=== PATIENT | female | born 1980 | race Caucasian/White ===

== ENCOUNTER → 2020-09-03 10:46 | Outpatient (CLI) | payer BC, SELFPAY ==
--- NOTE | 2020-09-03 | DI.RAD.S_ITS ---
PROCEDURE: XR CERVICAL SPINE 2V OR 3V INDICATIONS: BULGING CERVICAL DISK TECHNIQUE: 3 view(s) of the cervical spine were acquired. COMPARISON: None. FINDINGS: Bones: No fractures or dislocations to the T1 level. The lateral masses of C1 appear intact on the odontoid view. No suspicious bony lesions. There is a mild degree of degenerative disc disease at C4-5 and C5-6 and a ujlb-gn-vimebdin degree of such degeneration at C6-7. Soft tissues: No prevertebral soft tissue swelling. IMPRESSION: No subluxation or recent trauma found. Mild degenerative changes overall are present involving the cervical spine, most prominent at C6-7 where mild to moderate degenerative disc height reduction is present. Dictated by: Mario Art M.D. on 09/03/2020 at 14:35 Approved by: Mario Art M.D. on 09/03/2020 at 14:36
== END ==
PROVIDERS: PCP Student in an Organized Health Care Education/Training Program; Referring Provider Student in an Organized Health Care Education/Training Program; Visit Provider Student in an Organized Health Care Education/Training Program
DX: M50.20 Other cervical disc displacement, unspecified cervical region (principal); M50.321 Other cervical disc degeneration at C4-C5 level
CPT/HCPCS: 72040

== ENCOUNTER → 2022-03-03 15:45 | Outpatient (CLI) | payer BC, SELFPAY ==
--- NOTE | 2022-03-03 15:59 | DI.MG.S_ITS ---
BILATERAL DIGITAL SCREENING MAMMOGRAM 3D/2D WITH CAD: 03/03/2022 CLINICAL: Routine screening. Baseline exam. No prior exams were available for comparison. The tissue of both breasts is heterogeneously dense. This may lower the sensitivity of mammography. Current study was also evaluated with a Computer Aided Detection (CAD) system. No significant masses, calcifications, or other findings are seen in either breast. IMPRESSION: NEGATIVE There is no mammographic evidence of malignancy. A 1 year screening mammogram is recommended. This exam was interpreted at Station ID: [id number]. NOTE: For mammograms, a report in lay terms will be sent to the patient. Approximately 15% of breast malignancies will not be visualized mammographically. In the management of a palpable breast mass, a negative mammogram must not discourage biopsy of a clinically suspicious lesion. Electronically Signed By: Juna Carlos sidhu/ayla:03/03/2022 17:10:49 letter sent: Normal Exam ACR BI-RADS Category 1: Negative [id number]
== END ==
PROVIDERS: PCP Student in an Organized Health Care Education/Training Program; Referring Provider Student in an Organized Health Care Education/Training Program; Visit Provider Student in an Organized Health Care Education/Training Program
DX: Z12.31 Encounter for screening mammogram for malignant neoplasm of breast (principal)
CPT/HCPCS: 77063; 77067

== ENCOUNTER → 2023-04-07 15:33 | Outpatient (CLI) | payer BC, SELFPAY ==
--- NOTE | 2023-04-07 15:34 | DI.MG.S_ITS ---
BILATERAL DIGITAL SCREENING MAMMOGRAM 3D/2D WITH CAD: 04/07/2023 CLINICAL: Routine screening. Family history of breast cancer. Comparison is made to exam dated: 03/03/2022 mammogram - [facility]. Both breasts are heterogeneously dense, which may obscure small masses (category c / 51-75% glandular tissue). Current study was also evaluated with a Computer Aided Detection (CAD) system. No significant masses, calcifications, or other findings are seen in either breast. There has been no significant interval change. IMPRESSION: NEGATIVE There is no mammographic evidence of malignancy. A 1 year screening mammogram is recommended. Based on the Tyrer Cuzick model (a risk assessment model) the patient's lifetime risk is 10.6% and her 10 year risk is 1.8%. According to the ACR, ACS, and NCCN guidelines, an annual breast MRI exam along with mammogram is recommended if the patient's lifetime risk is 20% or greater. This exam was interpreted at Station ID: [id number]. NOTE: For mammograms, a report in lay terms will be sent to the patient. Approximately 15% of breast malignancies will not be visualized mammographically. In the management of a palpable breast mass, a negative mammogram must not discourage biopsy of a clinically suspicious lesion. Electronically Signed By: Yamil rees/ayla:04/08/2023 07:52:56 letter sent: Normal Exam ACR BI-RADS Category 1: Negative [id number]
== END ==
PROVIDERS: PCP Registered Nurse; Referring Provider Registered Nurse; Visit Provider Registered Nurse
DX: Z12.31 Encounter for screening mammogram for malignant neoplasm of breast (principal); Z80.3 Family history of malignant neoplasm of breast
CPT/HCPCS: 77063; 77067

== ENCOUNTER → 2023-09-17 17:10 | Outpatient (CLI) | payer BC, SELFPAY ==
--- NOTE | 2023-09-17 | DI.RAD.S_ITS ---
PROCEDURE: XR CHEST 2V INDICATIONS: COUGH TECHNIQUE: 2 views of the chest were acquired. COMPARISON: None. FINDINGS: Surgical changes and devices: None. Lungs and pleura: Streak like alveolar opacity in the left upper lobe extending from the perihilar region. No other consolidations, effusions, or pneumothorax. Mediastinum: Mediastinal contours are normal. Heart size is normal. Bones and chest wall: No suspicious bony abnormalities. Soft tissues appear unremarkable. IMPRESSION: 1. Probable left upper lobe pneumonia. Chest x-ray 2 weeks following appropriate treatment is recommended to exclude central obstructing lesion as differential diagnosis may include postobstructive pneumonia. Dictated by: Amanda Langston M.D. on 09/18/2023 at 14:21 Approved by: Amanda Langston M.D. on 09/18/2023 at 14:23
== END ==
PROVIDERS: PCP Registered Nurse; Referring Provider Registered Nurse; Visit Provider Registered Nurse
DX: R05.1 Acute cough (principal)
CPT/HCPCS: 71046

== ENCOUNTER 2024-03-03 17:11 | Emergency (ER) | payer BC, SELFPAY ==
[2024-03-03 17:27] VITALS: BP 159/97; PULSE 82; RESP 16; TEMP 36.6; O2SAT 98; BMI 28.3
[2024-03-03 20:56] VITALS: BP 180/92; PULSE 64; RESP 18; TEMP 36.6; O2SAT 99
--- NOTE | 2024-03-03 22:14 | ED_ITS ---
HPI - Skin/Abscess/Foreign Bdy General Chief complaint: Skin/Abscess/Foreign Body Stated complaint: Pelvic swelling sent by PCP Time Seen by Provider: 03/03/24 21:42 Source: patient, RN notes reviewed and old records reviewed Mode of arrival: Ambulatory Limitations: no limitations History of Present Illness HPI narrative: 43-year-old female with a proximally 2 months of pelvic bone pain, patient has been seen at the [facility] and had a pelvic MRI without contrast which at that time showed mild edema surrounding the pubic symphysis with osteoarthritic changes for low-grade osteitis pubis as well as mild edema involving inferior aspect of the left sacrum adjacent to the sacroiliac joint, no discrete fracture lines could represent stress related changes versus associated with left low- grade left sacroiliitis.Patient states swelling and pain has become more uncomfortable she is having more difficulty sitting for periods of time. She denies fevers or chills she has had some palpitations occasionally no acute chest pain or shortness of breath currently. No nausea or vomiting. No diarrhea constipation or fecal incontinence. She has had some dysuria urgency and frequency. Patient states she did have a urinalysis 3 weeks ago which she states was negative. She saw PMR today who told her they thought that she had an acute infection and sent her to the ED. Her MRI report is from 01/08/2024. Patient did have a left SI joint injection. She has been having some taping of her lower abdomen for lymphatic flow. She has not appreciate any warmth or erythema. She states it feels more swollen in that area and going down towards the pelvic area. She states no real intravaginal symptoms but there is some discomfort overall. She does have lidar analyst follow up on Thursday. She also states that she has had bladder lift surgery in the past and had sutures in that area, she notes she has had evaluate some case reports and there has been reports of infection related to the surgeries. Related Data Home Medications Medication Instructions Recorded Confirmed prenat.vits,yue,jtv-opit-gjvkw 1 tab PO DAILY 04/21/18 04/21/18 amitriptyline 10 mg tablet 10 mg PO DAILY 02/03/23 02/03/23 drospirenone 3 mg-ethinyl 1 tab PO DAILY 02/03/23 02/03/23 estradiol 0.02 mg tablet (ORA (28)) prednisone 1 mg tablet 1 mg PO DAILY 02/03/23 02/03/23 Previous Rx's Medication Instructions Recorded multivitamin no.36-folate 1 mg PO .daily #90 tabs 04/21/18 combination no.6 1 mg chewable tablet Allergies Allergy/AdvReac Type Severity Reaction Status Date / Time No Known Drug Allergies Allergy Unverified 03/03/24 17:35 Review of Systems Review of Systems ROS Unobtainable: All systems reviewed & are unremarkable except as noted in HPI and below Patient History Social History Smoking Status: Never smoker Smoking Status: Never smoker Substance Use Type: does not use Exam Narrative Exam Narrative: GENERAL: Alert and oriented x three, female in mild distress HEENT: Head normocephalic, atraumatic, EOMI, pupils reactive, face symmetric, moist mucous membranes NECK: Supple, full range of motion CARDIOVASCULAR: Regular rate and rhythm without murmurs, rubs or gallops. RESPIRATORY: Breath sounds equal bilaterally, no wheezes rales or rhonchi. ABDOMEN: Soft, nontender. Normoactive bowel sounds all 4 quadrants. No guarding or rebound, rigidity, no mass. Patient has tenderness over the pubic bone, no erythema, no warmth, no fluctuance, no large fluid collection appreciated. No obvious edema is noted externally suprapubic area or groin. : No CVA tenderness. EXTREMITIES: Normal range of motion, no clubbing or edema. Neurovascularly intact NEUROLOGICAL: Cranial nerves II through XII grossly intact. Moving all extremities SKIN: Warm, dry, no petechiae, no rashes or lesions. Initial Vital Signs Initial Vital Signs: Vital Signs Temperature 98 F 03/03/24 17:27 Pulse Rate 82 03/03/24 17:27 Respiratory Rate 16 03/03/24 17:27 Blood Pressure 159/97 H 03/03/24 17:27 Pulse Oximetry 98 03/03/24 17:27 Oxygen Delivery Method Room Air 03/03/24 17:27 Course Orders Ordered: ED Orders 03/03/24 22:43 CBC Auto Diff [Complete Blood Count AUTO DIFF] Stat CMP [Comprehensive Metabolic Panel] Stat CRP [C-Reactive Protein Quant] Stat ESR [Erythrocyte Sedimentation Rate] Stat 03/03/24 23:10 Blood Culture Stat 03/04/24 00:27 CT kidney ureter bladder (KUB) Stat Vital Signs Vital signs: Vital Signs - 8 hr 03/03/24 20:56 Temperature 97.8 F Pulse Rate 64 Respiratory Rate 18 Blood Pressure 180/92 H Pulse Oximetry 99 Oxygen Delivery Method Room Air MDM - Skin/Abscess/Foreign Bdy Lab Data 03/03/24 22:43 03/03/24 22:43 Labs: Lab Results 03/03/24 Range/Units 22:43 WBC 11.4 H (4.5-11.0) X10^3/uL RBC 4.77 (4.0-5.2) X10^6/uL Hgb 13.4 (12.0-16.0) g/dL Hct 40.3 (36-46) % MCV 84.4 (80-100) fL MCH 28.0 (26-34) PG MCHC 33.2 (30-36) % RDW 13.6 (11.6-14.8) % Plt Count 355 (150-400) X10^3/uL Neut % (Auto) 63.9 (50-75) % Lymph % (Auto) 26.7 (25-40) % Maverick % (Auto) 5.4 (3-14) % Eos % (Auto) 2.2 (2-4) % Baso % (Auto) 1.8 (0-2) % Neut # (Auto) 7300 H (9788-6613) /uL Lymph # (Auto) 3100 (7594-4535) /uL Maverick # (Auto) 600 (0-900) /uL Eos # (Auto) 200 (0-450) /uL Baso # (Auto) 200 H (0-100) /uL ESR 6 (0-20) MM/HR Sodium 138 (137-145) mmol/L Potassium 3.6 (3.4-5.1) mmol/L Chloride 107 (98-107) mmol/L Carbon Dioxide 27 (22-32) mmol/L BUN 11 (7-17) mg/dL Creatinine 0.66 (0.52-1.04) mg/dL Estimated GFR > 60 (>60) mL/min BUN/Creatinine Ratio 16.7 (6-22) Glucose 90 (70-100) mg/dL Calcium 9.1 (8.4-10.2) mg/dL Total Bilirubin 0.5 (0.2-1.3) mg/dL AST 19 (14-36) IU/L ALT 10 (<35) IU/L Alkaline Phosphatase 81 (38-126) U/L C-Reactive Protein < 0.5 (<1.0) mg/dL Total Protein 7.8 (6.3-8.2) g/dL Albumin 4.5 (3.5-5.0) g/dL Globulin 3.3 (1.7-4.1) g/dL Albumin/Globulin Ratio 1.4 (1.0-2.8) Urine Dip Bedside Urine Glucose Negative Bedside Urine Bilirubin - Negative Bedside Urine Ketone - Negative Urine Specific Leburn 1.015 Bedside Urine Occult Blood - Negative Bedside Urine pH 6.0 Bedside Urine Protein - Negative Bedside Urine Urobilinogen - Negative Bedside Urine Nitrite - Negative Bedside Urine Leukocytes - Negative Esterase Imaging Data CT scan - abdomen/pelvis: Radiologist's Impression: Jazmín Montesinos??43??F??1980 ? Allergy/Adv: No Known Drug Allergies Close Abdomen/Pelvis CT (Signed) Juan Carlos Fitzpatrick - 03/04/24 Chest X-Ray (Signed) mAanda Langston - 09/17/23 Mammogram Screening (Signed) Yamil Andrade - 04/07/23 Mammogram Screening (Signed) Juan Carlos Fitzpatrick - 03/03/22 Cervical Spine X-Ray (Signed) Mario Art - 09/03/20 [id number] [id number] CT Scan Report Signed Patient: Jazmín Montesinos MR#: [id number] : 1980 Acct:[id number] Age/Sex: 43 / F Date of Service: 03/04/24 Loc: ED Accession Number: [id number] Procedure: CT kidney ureter bladder (KUB) Ordering Provider: Collette Pineda D.O. PROCEDURE: CT KIDNEY URETER BLADDER (KUB) INDICATIONS: pain pubic symphysis. TECHNIQUE: Axial sections were acquired from the lung bases to the pubic symphysis. Coronal and sagittal reformats were performed. For radiation dose reduction, the following was used: automated exposure control, adjustment of mA and/or kV according to patient size. COMPARISON: None. FINDINGS: Image quality: Diagnostic. Lower Chest: No significant findings. URINARY: Right Kidney: No stones or hydronephrosis. Right Ureter: No hydroureter. Left Kidney: No stones or hydronephrosis. Left Ureter: No hydroureter. Bladder: Normal wall thickness. No stones. ABDOMEN: Liver: No contour-deforming solid mass. Gallbladder: No radiopaque gallstones or wall thickening. Biliary ducts: No biliary dilation. Pancreas: No ductal dilation. Spleen: Size is within normal limits. Adrenal Glands: No adrenal nodules. Stomach and Bowel: Normal colonic caliber, without significant wall thickening. The appendix is not definitively visualized. However, no secondary findings of acute inflammation are noted in the right lower quadrant. Peritoneum: No abnormal intraperitoneal fluid. No free air. Ventral Wall: No hernia. Abdominal Nodes: No enlarged retroperitoneal or mesenteric lymph nodes. Vessels: Aorta and inferior vena cava are normal in size. PELVIS: Pelvic Organs: The uterus is not definitively visualized and may be surgically absent. Recommend correlation with prior surgical history. Pelvic Nodes: Unremarkable. Miscellaneous: No inguinal hernias are seen. Bones: Unremarkable. No suspicious osseous lesions. Age-appropriate appearance of the pubic symphysis without diastasis. No overlying inflammatory changes. No acute fracture. IMPRESSION: CT abdomen and pelvis without acute abnormalities. Age-appropriate appearance of the pubic symphysis without evidence for fracture, diastasis, or overlying inflammatory changes. Dictated by: Juan Carlos Fitzpatrick M.D. on 03/04/2024 at 1:15 Approved by: Juan Carlos Fitzpatrick M.D. on 03/04/2024 at 1:19 MDM Narrative Medical decision making narrative: Labs show white count 11.4, hemoglobin of 13 platelets of 355. ESR is 6. Chemistries are overall appropriate, CRP is negative. Urine sample is negative. 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 Nonspecific subcortical cyst involving right femoral neck junction. Patient has been seen at [facility] and told it was not rheumatologic, she has seen orthopedic surgery and had an SI joint injection. Patient also had been seeing PMR. Discussed with patient can do pelvic exam she states there is some intra pelvic symptoms as well, initially patient was agreeable to this but then does defer. We had discussed CT abdomen pelvis earlier in her stay although we discussed that MRI would likely be more pertinent. She initially deferred any CT imaging and then changed her mind and we moved forward with CT, her IV has been pulled at this point so she would CT KUB although offered to replace her IV. Patient left prior to results of her CT returning. She would deferred any prescriptions for pain medications. She would asked about starting antibiotics but discussed no clear source requiring antibiotics has been found although patient's CT had not resulted. CT KUB was negative for acute changes. Called [phone], left voicemail to callback for results. Discharge Plan Departure Patient Disposition: Left Against Medical Advice Clinical Impression: Pelvic pain Activity Restrictions/Additional Instructions: Your labs today are overall reassuring with a normal ESR and CRP your white count is 11.4 otherwise you have normal labs. A copy of your labs is included. You did leave prior to your CT report being completed. I will try to call the number in the computer after your CT has resulted. To follow up with OBGYN. If your symptoms are persisting it maybe helpful to have a repeat MRI of your pelvis fortunately we were not able to obtain that for you today. I hope you feel improved soon. Please return for fevers rapidly worsening symptoms, difficulty with urination, no loss of bowel or bladder control, new redness swelling or other skin changes or other new or concerning changes. Prescriptions: No Action prednisone 1 mg tablet 1 mg PO DAILY drospirenone-ethinyl estradiol [ORA (28)] 3-0.02 mg tablet 1 tab PO DAILY amitriptyline 10 mg tablet 10 mg PO DAILY prenat.vits,yue,dzq-nozk-juttp tablet 1 tab PO DAILY multivitamin no.36-folate no.6 1 mg tablet,chewable 1 mg PO .daily Qty: 90 3RF Referrals: Jennifer Christie ARNP [Primary Care Provider] - Stand Alone Forms: Patient Portal/API, Against Medical Advice
[2024-03-03 23:05] LABS: Add Manual Diff / Slide Review NO; Basophils Absolute Auto 200 /uL (0-100); Basophils Percent Auto 1.8 % (0-2); Eosinophils Absolute Auto 200 /uL (0-450); Eosinophils Percent Auto 2.2 % (2-4); Hematocrit 40.3 % (36-46); Hemoglobin 13.4 g/dL (12.0-16.0); Lymphocytes Absolute Auto 3100 /uL (1100-4500); Lymphocytes Percent Auto 26.7 % (25-40); Mean Corpuscular HGB Conc 33.2 % (30-36); Mean Corpuscular Volume 84.4 fL (80-100); Monocytes Absolute Auto 600 /uL (0-900); Monocytes Percent Auto 5.4 % (3-14); Neutrophils Absolute Auto 7300 /uL (1500-7000); Neutrophils Percent Auto 63.9 % (50-75); Platelet Count 355 X10^3/uL (150-400); Red Blood Cell Count 4.77 X10^6/uL (4.0-5.2); Red Cell Distribution Width 13.6 % (11.6-14.8); White Blood Cell Count 11.4 X10^3/uL (4.5-11.0)
[2024-03-03 23:12] LABS: Alanine Aminotransferase 10 IU/L (<35); Albumin 4.5 g/dL (3.5-5.0); Albumin Globulin Ratio 1.4 (1.0-2.8); Alkaline Phosphatase 81 U/L (38-126); Aspartate Aminotransferase 19 IU/L (14-36); BUN Creatinine Ratio 16.7 (6-22); Bilirubin Total 0.5 mg/dL (0.2-1.3); Blood Urea Nitrogen 11 mg/dL (7-17); Calcium 9.1 mg/dL (8.4-10.2); Carbon Dioxide 27 mmol/L (22-32); Chloride 107 mmol/L (98-107); Estimated Glomerular Filt Rate > 60 mL/min (>60); Globulin 3.3 g/dL (1.7-4.1); Glucose 90 mg/dL (70-100); HEMOLYSIS < 15 (0-50); Potassium 3.6 mmol/L (3.4-5.1); Sodium 138 mmol/L (137-145); Total Protein 7.8 g/dL (6.3-8.2)
[2024-03-03 23:26] LABS: Erythrocyte Sedimentation Rate 6 MM/HR (0-20)
[2024-03-03 23:29] LABS: C-Reactive Protein Quant < 0.5 mg/dL (<1.0)
--- NOTE | 2024-03-04 00:27 | DI.CT.S_ITS ---
PROCEDURE: CT KIDNEY URETER BLADDER (KUB) INDICATIONS: pain pubic symphysis. TECHNIQUE: Axial sections were acquired from the lung bases to the pubic symphysis. Coronal and sagittal reformats were performed. For radiation dose reduction, the following was used: automated exposure control, adjustment of mA and/or kV according to patient size. COMPARISON: None. FINDINGS: Image quality: Diagnostic. Lower Chest: No significant findings. URINARY: Right Kidney: No stones or hydronephrosis. Right Ureter: No hydroureter. Left Kidney: No stones or hydronephrosis. Left Ureter: No hydroureter. Bladder: Normal wall thickness. No stones. ABDOMEN: Liver: No contour-deforming solid mass. Gallbladder: No radiopaque gallstones or wall thickening. Biliary ducts: No biliary dilation. Pancreas: No ductal dilation. Spleen: Size is within normal limits. Adrenal Glands: No adrenal nodules. Stomach and Bowel: Normal colonic caliber, without significant wall thickening. The appendix is not definitively visualized. However, no secondary findings of acute inflammation are noted in the right lower quadrant. Peritoneum: No abnormal intraperitoneal fluid. No free air. Ventral Wall: No hernia. Abdominal Nodes: No enlarged retroperitoneal or mesenteric lymph nodes. Vessels: Aorta and inferior vena cava are normal in size. PELVIS: Pelvic Organs: The uterus is not definitively visualized and may be surgically absent. Recommend correlation with prior surgical history. Pelvic Nodes: Unremarkable. Miscellaneous: No inguinal hernias are seen. Bones: Unremarkable. No suspicious osseous lesions. Age-appropriate appearance of the pubic symphysis without diastasis. No overlying inflammatory changes. No acute fracture. IMPRESSION: CT abdomen and pelvis without acute abnormalities. Age-appropriate appearance of the pubic symphysis without evidence for fracture, diastasis, or overlying inflammatory changes. Dictated by: Juan Carlos Fitzpatrick M.D. on 03/04/2024 at 1:15 Approved by: Juan Carlos Fitzpatrick M.D. on 03/04/2024 at 1:19
== END 2024-03-04 00:50 | disposition left against medical advice (07) ==
PROVIDERS: Emergency Provider Emergency Medicine; PCP Registered Nurse
DX: R10.2 Pelvic and perineal pain (principal)
CPT/HCPCS: 36415; 74176; 80053; 81003; 85025; 85651; 86140; 87040; 99283; 99284

== ENCOUNTER → 2024-04-19 17:08 | Outpatient (CLI) | payer BC, SELFPAY ==
--- NOTE | 2024-04-19 17:11 | DI.RAD.S_ITS ---
PROCEDURE: XR FOOT LT MIN 3V INDICATIONS: FOOT PAIN TECHNIQUE: 3 views of the foot were acquired. COMPARISON: None. FINDINGS: Bones: No fractures or dislocations. No suspicious bony lesions. Soft tissues: No tibiotalar joint effusion. Achilles tendon appears normal. IMPRESSION: No acute bony abnormality. Dictated by: Ramesh Plaza M.D. on 04/20/2024 at 11:51 Approved by: Ramesh Plaza M.D. on 04/20/2024 at 11:52
--- NOTE | 2024-04-19 17:11 | DI.RAD.S_ITS ---
PROCEDURE: XR FOOT RT MIN 3V INDICATIONS: FOOT PAIN TECHNIQUE: 3 views of the foot were acquired. COMPARISON: None. FINDINGS: Bones: No fractures or dislocations. No suspicious bony lesions. Soft tissues: No tibiotalar joint effusion. Achilles tendon appears normal. IMPRESSION: No acute bony abnormality. Dictated by: Ramesh Plaza M.D. on 04/20/2024 at 11:52 Approved by: Ramesh Plaza M.D. on 04/20/2024 at 11:53
== END ==
LOC: RAD 17:10
PROVIDERS: PCP Registered Nurse; Referring Provider Podiatrist Foot & Ankle Surgery; Visit Provider Podiatrist Foot & Ankle Surgery
DX: M79.672 Pain in left foot (principal); M79.671 Pain in right foot
CPT/HCPCS: 73630

== ENCOUNTER → 2024-06-07 13:08 | Outpatient (CLI) | payer BC, SELFPAY ==
--- NOTE | 2024-06-07 13:09 | DI.MG.S_ITS ---
BILATERAL DIGITAL SCREENING MAMMOGRAM 3D/2D WITH CAD: 06/07/2024 CLINICAL: Routine screening. Family history of breast cancer. Comparison is made to exams dated: 04/07/2023 mammogram and 03/03/2022 mammogram - [facility]. The breasts are heterogeneously dense, which may obscure small masses (category c / 51-75% glandular tissue). Current study was also evaluated with a Computer Aided Detection (CAD) system. No significant masses, calcifications, or other findings are seen in either breast. There has been no significant interval change. IMPRESSION: NEGATIVE There is no mammographic evidence of malignancy. A 1 year screening mammogram is recommended. Based on the Tyrer Cuzick model (a risk assessment model) the patient's lifetime risk is 10.6% and her 10 year risk is 1.9%. According to the ACR, ACS, and NCCN guidelines, an annual breast MRI exam along with mammogram is recommended if the patient's lifetime risk is 20% or greater. This exam was interpreted at Station ID: [id number]. NOTE: For mammograms, a report in lay terms will be sent to the patient. Approximately 15% of breast malignancies will not be visualized mammographically. In the management of a palpable breast mass, a negative mammogram must not discourage biopsy of a clinically suspicious lesion. Electronically Signed By: Darvin yañez/ayla:06/07/2024 15:54:56 letter sent: Normal Exam ACR BI-RADS Category 1: Negative
== END ==
PROVIDERS: PCP Registered Nurse; Referring Provider Registered Nurse; Visit Provider Registered Nurse
DX: Z12.31 Encounter for screening mammogram for malignant neoplasm of breast (principal); Z80.3 Family history of malignant neoplasm of breast; R92.333 Mammographic heterogeneous density, bilateral breasts
CPT/HCPCS: 77063; 77067

== ENCOUNTER → 2024-12-12 09:48 | Outpatient (CLI) | payer BC, SELFPAY ==
--- NOTE | 2024-12-12 09:51 | DI.RAD.S_ITS ---
PROCEDURE: XR THORACIC SPINE 2V INDICATIONS: BACK PAIN TECHNIQUE: 3 views of the thoracic spine were acquired. COMPARISON: None. FINDINGS: Thoracic spine curvature and alignment: Slight rightward curve noted Bones: There are no osseous abnormalities. Disc spaces: Minimal degenerative disc disease throughout the upper midthoracic spine noted. Soft tissues: No soft tissue swelling, calcification or mass. IMPRESSION: Chronic findings as described Dictated by: Pedro Howard M.D. on 12/12/2024 at 10:57 Approved by: Pedro Howard M.D. on 12/12/2024 at 10:57
--- NOTE | 2024-12-12 09:51 | DI.RAD.S_ITS ---
PROCEDURE: XR LUMBAR SPINE 2-3V INDICATIONS: BACK PAIN TECHNIQUE: 3 views of the lumbar spine were acquired. COMPARISON: None. FINDINGS: Lumbar spine curvature and alignment: Normal. Bones: There are no osseous abnormalities. Disc spaces: Normal in height without significant degeneration. Mild L5-S1 degenerative facet disease noted Soft tissues: No soft tissue swelling, calcification or mass. IMPRESSION: Mild L5-S1 degenerative facet disease Dictated by: Pedro Howard M.D. on 12/12/2024 at 10:56 Approved by: Pedro Howard M.D. on 12/12/2024 at 10:56
--- NOTE | 2024-12-12 09:52 | DI.RAD.S_ITS ---
PROCEDURE: XR CERVICAL SPINE 2V OR 3V INDICATIONS: BACK PAIN TECHNIQUE: Three views of the cervical spine were acquired. COMPARISON: [facility], CR, XR CERVICAL SPINE 2V OR 3V, 09/03/2020, 10:59. FINDINGS: Cervical spine curvature and alignment: Normal. Bones: There are no osseous abnormalities. Disc spaces: Mild C3-4 and minimal C6-7 degenerative disc disease appreciated Intervertebral foramen: Grossly normal in width. Soft tissues: No soft tissue swelling, calcification or mass. IMPRESSION: Degeneration. Dictated by: Pedro Howard M.D. on 12/12/2024 at 10:58 Approved by: Pedro Howard M.D. on 12/12/2024 at 10:58
== END ==
PROVIDERS: PCP Registered Nurse; Referring Provider Family Medicine; Visit Provider Family Medicine
DX: M50.31 Other cervical disc degeneration, high cervical region (principal); M47.817 Spondylosis without myelopathy or radiculopathy, lumbosacral region; M54.9 Dorsalgia, unspecified; R20.0 Anesthesia of skin; R20.2 Paresthesia of skin
CPT/HCPCS: 72040; 72070; 72100

== ENCOUNTER → 2025-08-14 12:18 | Outpatient (CLI) | payer BC, SELFPAY ==
--- NOTE | 2025-08-14 12:21 | DI.RAD.S_ITS ---
PROCEDURE: ORTHO-XR FOOT 3V WB RIGHT INDICATIONS: BILAT FOOT PAIN TECHNIQUE: 3 weight-bearing views acquired of the foot. COMPARISON: [facility], CR, XR FOOT RT MIN 3V, 04/19/2024, 17:17. FINDINGS: Bones: There is normal bony alignment with weight bearing. No fractures or dislocations. No suspicious bony lesions. Mild 1st MTP joint space narrowing. Soft tissues: No tibiotalar joint effusion. No suspicious soft tissue calcifications. IMPRESSION: No acute bony abnormality. Mild 1st MTP joint space narrowing. Dictated by: Maribeth Hanna M.D. on 08/14/2025 at 14:39 Approved by: Maribeth Hanna M.D. on 08/14/2025 at 14:41
--- NOTE | 2025-08-14 12:21 | DI.RAD.S_ITS ---
PROCEDURE: ORTHO-XR FOOT 3V WB LEFT COMPARISON: [facility], CR, XR FOOT RT MIN 3V, 04/19/2024, 17:17. INDICATIONS: BILAT FOOT PAIN TECHNIQUE: Three views of the left foot. Three views of the left foot acquired. No acute fracture. Normal alignment. Mild narrowing of the 1st MTP joint with a small osteophyte. Small bunionette. No soft tissue abnormality. IMPRESSION: No acute fracture. Normal alignment. Mild 1st MTP arthritis. Dictated by: Maribeth Hanna M.D. on 08/14/2025 at 14:43 Approved by: Maribeth Hanna M.D. on 08/14/2025 at 14:45
== END ==
PROVIDERS: PCP Registered Nurse; Referring Provider Registered Nurse
DX: M19.072 Primary osteoarthritis, left ankle and foot (principal); M21.622 Bunionette of left foot; M79.671 Pain in right foot; M79.672 Pain in left foot
CPT/HCPCS: 73630